=== PATIENT | male | born 1995 | race Caucasian/White ===

== ENCOUNTER 2018-01-23 21:52 | Emergency (ER) | payer BC ==
[~2018-01-23] VITALS: Ht 167.6 cm; Wt 86.4 kg
[2018-01-23 21:57] VITALS: TEMP 100.4
[2018-01-23 22:14] LABS: BASO # 0.1 (0.0-0.2); BASO % 0.7 % (0.0-2.0); EOS # 0.2 (0.0-0.7); EOS % 2.8 % (0-4.0); GRAN # 4.3 (1.4-6.5); GRAN % 52.4 % (42.2-75.2); HEMATOCRIT 46.7 % (42.0-52.0); HEMOGLOBIN 16.6 g/dl (13.5-18.0); LYMPH # 3.1 (1.2-3.4); LYMPH % 36.7 % (20.0-51.0); MEAN CELL VOLUME 86 fl (80.0-100.0); MEAN CORPUSCULAR HEMOGLOBIN 31 pg (27.0-31.0); MEAN CORPUSCULAR HGB CONC 36 g/dl (33.0-37.0); MEAN PLATELET VOLUME 8.6 fl (7.4-10.4); MONO # 0.6 (0.1-0.6); MONO % 7.2 % (1.7-9.3); PLATELET COUNT 267 K/mm3 (130-400); RED BLOOD COUNT 5.44 M/mm3 (4.20-5.60); REDCELL DISTRIBUTION WIDTH-CV 11.8 % (11.5-14.5)
[2018-01-23 22:25] LABS: ALANINE AMINOTRANSFERASE 33 U/L (21-72); ALBUMIN 4.7 gm/dL (3.5-5.0); ALKALINE PHOSPHATASE 80 U/L (50-136); ANION GAP 14 mmol/L (7-16); AST,SGOT 35 U/L (15-37); BILIRUBIN,TOTAL 1.2 mg/dL (0.0-1.0); BLOOD UREA NITROGEN 15 mg/dL (9-20); CALCIUM 9.6 mg/dL (8.4-10.2); CARBON DIOXIDE 28 mmol/L (22-30); CHLORIDE 99 mmol/L (98-107); GLUCOSE 93 mg/dL (74-106); LIPASE 172 U/L (23-300); POTASSIUM 3.5 mmol/L (3.4-5.0); SODIUM 141 mmol/L (137-145); TOTAL PROTEIN 7.9 gm/dL (6.4-8.2)
[2018-01-23 22:27] LABS: C-REACTIVE PROTEIN < 0.5 mg/dL (0.0-0.9)
[2018-01-23 22:33] LABS: COLLECTION METHOD CLEAN CATCH
[2018-01-23 22:45] LABS: PH 7 (5-8); SQUAMOUS EPITHELIAL None Seen /hpf; URINE APPEARANCE Clear; URINE BACTERIA None Seen /hpf; URINE BILIRUBIN Negative (NEGATIVE); URINE BLOOD Negative (NEGATIVE); URINE COLOR Straw; URINE GLUCOSE Negative (NEGATIVE); URINE KETONE Negative (NEGATIVE); URINE LEUKOCYTE ESTERASE Negative (NEGATIVE); URINE NITRATE Negative (NEGATIVE); URINE PROTEIN(semi-quant) Negative (NEGATIVE); URINE RBC 0-2 /hpf; URINE UROBILINOGEN Negative (NEGATIVE)
[2018-01-23] MEDS ORDERED: PROTONIX 40MG T40 MG PO (22:54)
[2018-01-23 23:06] VITALS: BP 130/70; PULSE 90
== END 2018-01-23 23:10 | disposition home or self-care (01) ==
LOC: COL.ER 21:52
PROVIDERS: Emergency Medicine
DX: R10.9 Unspecified abdominal pain (principal); N28.9 Disorder of kidney and ureter, unspecified
CPT/HCPCS: J7030; Q9967